=== PATIENT | male | born 1955 | race Caucasian/White ===

== ENCOUNTER 2024-12-30 20:35 | Emergency (ER) | payer MEDICARE, OTHER ==
[~2024-12-30] VITALS: Ht 170.2 cm; Wt 74.4 kg
[~2024-12-30 20:35] MED LIST: ACET-868 PO; ASCO-352 PO; ASPI-1169 PO; ATOR40TA PO; CEPH250C PO; CLOP75TA15 PO; CYCL5TAB PO; FURO-144 PO; GABA-532 PO; HYDR-4303 PO; INSU100V10 SQ; INSU100V42 SQ; METO25TA20 PO; NITR0.4T48 SL; RIVA10TA PO; ZOLP5TAB2 PO
[2024-12-31 00:36] VITALS: BP 164/80; TEMP 98.1; O2SAT 99
== END 2024-12-31 01:07 | disposition home or self-care (01) ==
LOC: ER 20:47
DX: Z48.01 Encounter for change or removal of surgical wound dressing (principal); M79.602 Pain in left arm; M62.838 Other muscle spasm; E10.9 Type 1 diabetes mellitus without complications; E78.5 Hyperlipidemia, unspecified; G82.20 Paraplegia, unspecified; I10 Essential (primary) hypertension; I48.91 Unspecified atrial fibrillation; Z79.01 Long term (current) use of anticoagulants; Z79.02 Long term (current) use of antithrombotics/antiplatelets; Z79.82 Long term (current) use of aspirin; Z79.899 Other long term (current) drug therapy